=== PATIENT | female | born 1970 ===

== ENCOUNTER 2018-05-24 16:08 | Outpatient (CLI) | payer OTHER ==
[~2018-05-24] VITALS: Ht 157.5 cm; Wt 78.0 kg
== END 2018-05-24 16:20 | disposition home or self-care (01) ==
LOC: OFIC 805 16:08
DX: K21.9 Gastro-esophageal reflux disease without esophagitis (principal); R49.0 Dysphonia; J04.0 Acute laryngitis

== ENCOUNTER 2019-04-11 16:12 | Outpatient (CLI) | payer OTHER | END 2019-04-11 17:00 | disposition home or self-care (01) | LOC: RAD 16:12 | DX: M25.552 Pain in left hip (principal) ==